=== PATIENT | male | born 1960 | race Caucasian/White ===

== ENCOUNTER 2018-07-25 19:01 | Emergency (ER) | payer OTHER ==
[2018-07-25] MEDS ORDERED: HYDROmorphone 1 MG/ML 1 ML SYRINGE IVP STA ×2 (19:31→21:39)
[2018-07-25] MEDS ORDERED: ONDANSETRON 4 MG/2 ML VIAL IVP STA (19:31)
[2018-07-25] MEDS ORDERED: DIAZEPAM 5 MG/ML 2 ML INJ IVP STA (19:31)
[2018-07-25] MEDS ORDERED: LISINOPRIL 20 MG TAB PO STA (19:33)
--- NOTE | 2018-07-25 19:46 | ED ---
Back Pain HPI - General Chief Complaint: Back Pain/Injury Stated Complaint: Back pain Time Seen by Provider: 07/25/18 19:12 Source: patient Limitations: no limitations - History of Present Illness Initial Comments: 57-year-old male patient presents to the emergency department today for evaluation of low back pain. Patient states that the pain started yesterday morning and has been getting worse. Patient states the pain is starting to radiate down the left leg. He describes the radiating pain as a burning pain to his anterior thigh. Patient denies any saddle anesthesia or loss of bowel or bladder control. Denies any numbness or tingling to the lower extremities. Denies any fever or chills. Denies abdominal pain. Patient does have history of hypertension and has been out of his pain medication for quite a while. Patient denies any headache, blurred vision, or double vision. Denies any weakness to the extremities. Patient states he does have a history of low back pain and "bad disks". Patient states he has never had back pain like this before. Patient denies any recent rash, shortness breath, chest pain, nausea, vomiting, diarrhea, constipation, dizziness, hematuria, dysuria, urinary urgency, urinary frequency, headache, visual changes, or any other complaints. - Related Data Home Medications Medication Instructions Recorded Confirmed Naproxen Sodium [Aleve] 660 mg PO DAILY PRN 07/25/18 07/25/18 Previous Rx's Medication Instructions Recorded Diazepam [Valium] 5 mg PO Q8H PRN 3 Days #9 tab 07/25/18 Morphine Sulfate Ir [MSIR] 15 mg PO Q4H PRN 3 Days #18 tab 07/25/18 Lisinopril 40 mg PO DAILY #30 tab 07/26/18 Allergies Allergy/AdvReac Type Severity Reaction Status Date / Time No Known Allergies Allergy Verified 07/25/18 19:35 Review of Systems ROS Statement: Those systems with pertinent positive or pertinent negative responses have been documented in the HPI. ROS Other: All systems not noted in ROS Statement are negative. Past Medical History Past Medical History: Hypertension History of Any Multi-Drug Resistant Organisms: None Reported Past Surgical History: Cholecystectomy, Orthopedic Surgery, Tonsillectomy Past Psychological History: No Psychological Hx Reported Smoking Status: Current every day smoker Past Alcohol Use History: None Reported Past Drug Use History: None Reported General Exam Limitations: no limitations General appearance: alert, in no apparent distress, other (Physical well- developed, well-nourished adult male patient in no acute distress. Vital signs upon presentation are temperature 97.8F, pulse 90, respirations 18, blood pressure 210/106, pulse ox 97% on room air.) Eye exam: Present: normal appearance, PERRL, EOMI. Absent: scleral icterus, conjunctival injection, periorbital swelling ENT exam: Present: normal exam, normal oropharynx, mucous membranes moist Respiratory exam: Present: normal lung sounds bilaterally. Absent: respiratory distress, wheezes, rales, rhonchi, stridor Cardiovascular Exam: Present: regular rate, normal rhythm, normal heart sounds. Absent: systolic murmur, diastolic murmur, rubs, gallop, clicks GI/Abdominal exam: Present: soft, normal bowel sounds. Absent: distended, tenderness, guarding, rebound, rigid Extremities exam: Present: normal inspection, full ROM, normal capillary refill, other (Skin to the lower extremities is pink, warm, dry. Cap refills less than 3 seconds. Pedal posttibial pulses are 2+ and equal bilaterally.). Absent: tenderness, pedal edema, joint swelling, calf tenderness Back exam: Present: normal inspection. Absent: vertebral tenderness Neurological exam: Present: alert, oriented X3, CN II-XII intact Psychiatric exam: Present: normal affect, normal mood Skin exam: Present: warm, dry, intact, normal color. Absent: rash Course Vital Signs 07/25/18 07/25/18 07/25/18 19:04 20:35 21:20 Temperature 97.8 F Pulse Rate 90 87 89 Respiratory 18 22 20 Rate Blood Pressure 210/106 185/112 147/94 O2 Sat by Pulse 97 96 95 Oximetry 07/25/18 07/25/18 22:55 23:37 Temperature 98.0 F Pulse Rate 85 76 Respiratory 20 20 Rate Blood Pressure 137/84 138/80 O2 Sat by Pulse 89 L 92 L Oximetry Medical Decision Making - Medical Decision Making 57-year-old male patient presented to the emergency department today for increased low back pain. Patient states that pain started yesterday around midmorning when he was sitting in his truck. Patient denies any increase in physical activity or known injury. Patient states the pain is radiating down the left anterior thigh. Describes the radiating pain as a burning sensation. Denies any numbness or tingling to the lower external views. Denies any concerning symptoms for cauda equina. Patient is afebrile. Blood pressure elevated upon arrival. CT angiography of the chest, abdomen, pelvis was obtained and showed several areas of aneurysm but no dissection or rupture. Patient was given several doses of pain medication and steroids here in the emergency department. My attending Dr. Torres and was in to see and evaluate the patient. Patient does report improvement symptoms. He does have comfortable being discharged home at this time of pain medication and muscle relaxers. He is instructed to follow-up with his primary care physician for recheck in 1-2 days. Return parameters discussed in detail. He verbalizes understanding and agrees with this plan. - Radiology Data Radiology results: report reviewed, image reviewed CT angiography of the chest, abdomen, and pelvis was obtained. Report was reviewed in its entirety. Impression by Dr. Mo shows aneurysm of the ascending aorta up to 4.1 cm and distal abdominal aorta up to 3.1 cm. No aortic dissection. No acute findings evident. Enlarged thoracic lymph nodes before further nonemergent clinical workup. Disposition Clinical Impression: Acute low back pain, Aortic aneurysm Disposition: HOME SELF-CARE Condition: Good Instructions (If sedation given, give patient instructions): Nonruptured Abdominal Aortic Aneurysm (DC), Acute Low Back Pain (ED), Lower Back Exercises (ED) Additional Instructions: Apply warm moist heat to the low back. Perform gentle range of motion. Take medications as directed. Follow-up through primary care physician for recheck as soon as possible. Inform your primary care physician of the findings of aneurysm on your CT scan. Follow-up with the digital media specialist for recheck as soon as possible. Return to the emergency department immediately for any new, worsening, or concerning symptoms. Prescriptions: Morphine Sulfate Ir [MSIR] 15 mg PO Q4H PRN 3 Days #18 tab PRN Reason: Pain Diazepam [Valium] 5 mg PO Q8H PRN 3 Days #9 tab PRN Reason: Pain Is patient prescribed a controlled substance at d/c from ED?: No Referrals: Fareed Garcia DO [Primary Care Provider] - 1-2 days Time of Disposition: 23:17
--- NOTE | 2018-07-25 20:50 | CT ---
EXAMINATION TYPE: CT angio thor/abd pel aorta DATE OF EXAM: 07/25/2018 COMPARISON: None. HISTORY: Chest and abdominal pain radiating to back.. CT DLP: 1563 mGycm. Automated Exposure Control for Dose Reduction was Utilized. CONTRAST: CTA scan of the thorax, abdomen and pelvis is performed without and with IV Contrast, patient injecte d with 100ml mL of Isovue 370. Aneurysm protocol with 3-D reconstructed images created on an [employer] ent workstation and reviewed. FINDINGS: VASCULAR: Central pulmonary arteries show satisfactory enhancement. Main pulmonary artery measures 3. 0 cm in diameter bifurcation, CT findings suggesting underlying pulmonary hypertension as there is pr ominence of the right and left pulmonary arteries noted. Adjacent ascending aorta measures up to 4.1 cm in diameter on same axial image 48. There is bovine type aortic arch which is normal variant. Ther e is no significant plaque in the aortic arch or great vessels. There is patent celiac artery, SMA, a nd RUTH as well as bilateral single renal arteries. There is mild aneurysmal change of the distal abdo taya aorta up to 3.3 cm axial image 147 with mild to moderate peripheral noncalcified plaque. 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 There is slight aneurysmal change to the right internal iliac artery axial image 178. There is mild to modera te mixed plaque in the iliac arteries without significant stenosis. There is mild plaque in the right groin. No significant stenosis in the femoral arteries is seen. No linear hypodensity to suggest dis section is present. LUNGS: The lungs are grossly clear, there is no concerning parenchymal mass or nodule identified. T here is no pleural effusion or pneumothorax seen. The tracheobronchial tree is patent. MEDIASTINUM: There are prominent and enlarged mediastinal and bilateral hilar lymph nodes. For refere nce prevascular lymph node measures 3.1 x 1.4 cm axial image 41 No cardiomegaly or pericardial effus ion is seen. There is moderate left ventricular dilatation noted. Moderate coronary artery calcifica tion is present which is noted marker for underlying coronary artery disease OTHER: No additional significant abnormality is seen. LIVER/GB: Gallbladder is not seen and suspected surgically absent.. PANCREAS: No significant abnormality is seen. SPLEEN: No significant abnormality is seen. ADRENALS: No significant abnormality is seen. KIDNEYS: There are a few simple appearing cysts scattered throughout both kidneys. BOWEL: There are diverticula in the left and sigmoid colon. GENITAL ORGANS: Some central calcifications in prostate gland. Adjacent left-sided pelvic phleboliths are present. LYMPH NODES: No greater than 1cm abdominal or pelvic lymph nodes are appreciated. OSSEOUS STRUCTURES: No significant abnormality is seen. OTHER: No significant additional abnormality is seen. IMPRESSION: 1. Aneurysm of the ascending aorta up to 4.1 cm and the distal abdominal aorta up to 3.1 cm. No aort ic dissection. No acute findings evident. 2. Enlarged thoracic lymph nodes may warrant further nonemergent clinical workup.
[2018-07-25] MEDS ORDERED: HYDROmorphone 2 MG/ML 1 ML SYRINGE IVP STA (21:15)
[2018-07-25 21:24] VITALS: RESP 20
[2018-07-25] MEDS ORDERED: methylPREDNISolone SOD SUCCI 125 MG/2 ML VIAL IV STA (21:32)
[2018-07-25] MEDS ORDERED: KETOROLAC 30 MG/ML 1 ML VIAL IVP STA (21:32)
[2018-07-25] MEDS ORDERED: ACET/COD 300 MG/30 MG STARTER PACK 6 TAB BTL PO STA (23:31)
[2018-07-25 23:38] VITALS: BP 138/80; PULSE 76; TEMP 98
== END 2018-07-25 23:38 | disposition home or self-care (01) ==
LOC: EC 19:01
DX: I71.2 Thoracic aortic aneurysm, without rupture (principal); I71.4 Abdominal aortic aneurysm, without rupture; F17.200 Nicotine dependence, unspecified, uncomplicated
CPT/HCPCS: 71275; 74174; 99284; 96374; 96375 ×4; 96376 ×2; J1170 ×2; J2930; J3360; J2405; J1885; Q9967